=== PATIENT | male | born 1980 | race African-American/Black ===

== ENCOUNTER 2017-08-07 14:43 | Emergency (ER) | payer MEDICAID ==
[~2017-08-07] VITALS: Ht 165.1 cm; Wt 75.6 kg
[2017-08-07 14:51] VITALS: BP 137/78
[2017-08-07] MEDS ORDERED: TETANUS, DIPHTHERIA, PERTUSSIS VAC/PF 0.5ML (>7YR OLD) IM ONE (18:30)
== END 2017-08-07 19:12 | disposition home or self-care (01) ==
LOC: ER 15:43
DX: S61.032A Puncture wound without foreign body of left thumb without damage to nail, initial encounter (principal); X58.XXXA Exposure to other specified factors, initial encounter; Y93.G1 Activity, food preparation and clean up; Y92.89 Other specified places as the place of occurrence of the external cause; Y99.8 Other external cause status
CPT/HCPCS: 73130; 90471; 90715; 99284

== ENCOUNTER 2019-08-13 04:13 | Emergency (ER) | payer MEDICAID ==
[~2019-08-13] VITALS: Ht 165.1 cm; Wt 78.0 kg
[2019-08-13] MEDS ORDERED: TETANUS, DIPHTHERIA, PERTUSSIS VAC/PF 0.5ML (>7YR OLD) IM ONE (06:30)
[2019-08-13] MEDS ORDERED: IBUPROFEN 600MG TABLET PO ONE (06:30)
[2019-08-13] MEDS ORDERED: LIDOCAINE HCL/PF 1% 10 MG/ML 5ML VIAL IJ ONE (06:30)
[2019-08-13] MEDS ORDERED: ACETAMINOPHEN 325MG TABLET PO ONE (06:30)
[2019-08-13] MEDS ORDERED: BACITRACIN ZINC OINT UDPKT TOP ONE (06:30)
[2019-08-13] MEDS ORDERED: BACITRACIN 15GM TUBE TOP ONE (08:00)
[2019-08-13 09:15] VITALS: BP 112/60
== END 2019-08-13 09:10 | disposition home or self-care (01) ==
LOC: ER 04:56
DX: S61.217A Laceration without foreign body of left little finger without damage to nail, initial encounter (principal); F12.10 Cannabis abuse, uncomplicated; F17.200 Nicotine dependence, unspecified, uncomplicated; W45.8XXA Other foreign body or object entering through skin, initial encounter; Y93.E5 Activity, floor mopping and cleaning; Y92.018 Other place in single-family (private) house as the place of occurrence of the external cause; Y99.8 Other external cause status
CPT/HCPCS: 12001; 90471; 90715; 99284; A4217; Z7610

== ENCOUNTER 2021-05-30 13:10 | Emergency (ER) | payer MEDICAID ==
[~2021-05-30] VITALS: Ht 170.2 cm; Wt 75.0 kg
[2021-05-30] MEDS ORDERED: KETOROLAC 60MG/2ML VIAL IM ONE (14:00)
[2021-05-30 14:31] VITALS: BP 138/78
[2021-05-30] MEDS ORDERED: IBUP-2029 MT (15:42)
[2021-05-30] MEDS ORDERED: AMOX-424 MT (15:42)
== END 2021-05-30 16:09 | disposition home or self-care (01) ==
LOC: ER 13:10
DX: K08.89 Other specified disorders of teeth and supporting structures (principal); F12.10 Cannabis abuse, uncomplicated; H91.90 Unspecified hearing loss, unspecified ear
CPT/HCPCS: 96372; 99283; J1885

== ENCOUNTER 2023-12-15 04:22 | Emergency (ER) | payer MEDICAID ==
[~2023-12-15] VITALS: Ht 165.1 cm; Wt 80.0 kg
[~2023-12-15 04:22] MED LIST: AMOX-424 MT; IBUP-2029 MT
[2023-12-15 04:24] VITALS: O2SAT 100
[2023-12-15] MEDS: ACETAMINOPHEN 325MG TABLET PO ONE ×2 (04:54→08:07)
[2023-12-15] MEDS: ONDANSETRON HCL 4MG/2ML INJ IV ONE (04:55)
[2023-12-15] MEDS: MORPHINE SULFATE 4 MG/ML CPJ (NOT FOR IM USE) IV ONE (04:55)
[2023-12-15] MEDS: TETANUS, DIPHTHERIA, PERTUSSIS VAC/PF 0.5ML (>10YR OLD) IM ONE (05:03)
[2023-12-15] MEDS ORDERED: IBUP-1525 MT (07:20)
[2023-12-15] MEDS ORDERED: ONDA4TAB50 MT (07:20)
[2023-12-15] MEDS ORDERED: TOPUD MT (07:20)
[2023-12-15] MEDS ORDERED: IBUPROFEN 800MG TABLET PO ONE (07:30)
[2023-12-15] MEDS: IBUPROFEN 400MG TABLET PO NR (08:07)
[2023-12-15 08:08] VITALS: BP 117/71; PULSE 64; RESP 14; TEMP 97.4
== END 2023-12-15 08:45 | disposition home or self-care (01) ==
LOC: ER 04:22
DX: S02.2XXA Fracture of nasal bones, initial encounter for closed fracture (principal); F12.10 Cannabis abuse, uncomplicated; Y04.0XXA Assault by unarmed brawl or fight, initial encounter; Y93.89 Activity, other specified; Y92.89 Other specified places as the place of occurrence of the external cause; Y99.8 Other external cause status
CPT/HCPCS: 70450; 70486; 72125; 90715; 90471; 96374; 96375; 99285; J2405; J2270; Z7610

== ENCOUNTER 2025-01-19 11:51 | Emergency (ER) | payer MEDICAID, OTHER ==
[~2025-01-19] VITALS: Ht 165.1 cm; Wt 61.2 kg
[~2025-01-19 11:51] MED LIST changes: +IBUP-1525 MT; +ONDA4TAB50 MT; +TOPUD MT
[2025-01-19 11:58] VITALS: O2SAT 98
[2025-01-19] MEDS: MORPHINE SULFATE 4 MG/ML INJ (FOR IV/IM USE) IV ONE ×2 (13:00→15:12)
[2025-01-19 13:03] LABS: BASOPHILS % 0.9 % (0.0-2.0); HEMATOCRIT. 37.9 % (42.0-52.0); HEMOGLOBIN. 12.2 g/dL (14.0-18.0); LYMPHOCYTES % 18.2 % (20.0-50.0); MEAN CORPUSCULAR HEMOGLOBIN 31.9 pg (28.0-32.0); MEAN CORPUSCULAR HGB CONC 32.2 g/dL (31.0-37.0); MEAN CORPUSCULAR VOLUME 99.1 fL (80.0-94.0); MEAN PLATELET VOLUME 7.6 fl (7.4-10.4); MONOCYTES % 6.8 % (2.0-8.0); NEUTROPHILS % 73.1 % (40.0-76.0); PLATELET 271 x1000/uL (130-400); RED BLOOD CELL COUNT 3.82 mill/uL (4.7-6.1); RED CELL DISTRIBUTION WIDTH 13.6 % (11.6-14.6); WHITE BLOOD COUNT 7.1 x1000/uL (4.5-11.0)
[2025-01-19 13:18] LABS: CHLORIDE 106 mEq/L (98-107); POTASSIUM 3.9 mEq/L (3.5-5.1); SODIUM 142 mEq/L (136-145)
[2025-01-19 13:19] LABS: CALCIUM 9.7 mg/dL (8.7-10.4); CARBON DIOXIDE 28 mEq/L (21-32)
[2025-01-19 13:24] LABS: CREATININE 1.1 mg/dL (0.6-1.3); GLUCOSE 108 mg/dL (70-105); UREA NITROGEN BLOOD 15 mg/dL (9-23)
[2025-01-19] MEDS ORDERED: OXYC-100 MT (14:53)
[2025-01-19 15:45] VITALS: BP 122/73; PULSE 76; RESP 12; TEMP 36.8; O2SAT 95
== END 2025-01-19 16:13 | disposition home or self-care (01) ==
LOC: ER 11:51
DX: S43.101A Unspecified dislocation of right acromioclavicular joint, initial encounter (principal); S06.9X1A Unspecified intracranial injury with loss of consciousness of 30 minutes or less, initial encounter; F12.10 Cannabis abuse, uncomplicated; Z79.899 Other long term (current) drug therapy; V00.131A Fall from skateboard, initial encounter; Y93.51 Activity, roller skating (inline) and skateboarding; Y92.89 Other specified places as the place of occurrence of the external cause; Y99.8 Other external cause status
CPT/HCPCS: 80048; 85025; 86850; 86900; 86901; 36415; 71045; 73030; 73060; 70450; 72125; 96374; 96376; 99291; J2270; Z7610; A4565

== ENCOUNTER 2025-04-09 03:53 | Emergency (ER) | payer MEDICAID ==
[~2025-04-09] VITALS: Ht 165.1 cm; Wt 78.1 kg
[~2025-04-09 03:53] MED LIST changes: +OXYC-100 MT
[2025-04-09 04:18] VITALS: TEMP 36.7; O2SAT 98
[2025-04-09] MEDS ORDERED: TOPUD PO (06:01)
[2025-04-09] MEDS: ACETAMINOPHEN 325MG TABLET PO ONE (06:07)
[2025-04-09] MEDS ORDERED: CLOT15CR27 TP (06:14)
[2025-04-09 06:55] VITALS: BP 133/85; PULSE 83; RESP 18; O2SAT 98
== END 2025-04-09 06:56 | disposition home or self-care (01) ==
LOC: ER 03:53
DX: S43.101A Unspecified dislocation of right acromioclavicular joint, initial encounter (principal); B35.3 Tinea pedis; Z79.899 Other long term (current) drug therapy; Z79.1 Long term (current) use of non-steroidal anti-inflammatories (NSAID); W19.XXXA Unspecified fall, initial encounter; Y93.89 Activity, other specified; Y92.89 Other specified places as the place of occurrence of the external cause; Y99.8 Other external cause status
CPT/HCPCS: 99282